=== PATIENT | female | born 1975 | race African-American/Black ===

== ENCOUNTER 2018-12-07 13:43 | Emergency (ER) | payer OTHER ==
[~2018-12-07] VITALS: Ht 167.6 cm; Wt 63.5 kg
[2018-12-07] MEDS ORDERED: BUTALB-APAP-CA1 EACH PO (15:41)
[2018-12-07] MEDS ORDERED: CYCLOBENZAPRINE5 MG PO (15:41)
[2018-12-07 16:44] VITALS: BP 124/72
== END 2018-12-07 16:44 | disposition home or self-care (01) ==
LOC: ER 13:43
DX: S29.012A Strain of muscle and tendon of back wall of thorax, initial encounter (principal); R51 Headache; V49.49XA Driver injured in collision with other motor vehicles in traffic accident, initial encounter; Y93.89 Activity, other specified; Y92.89 Other specified places as the place of occurrence of the external cause; Y99.8 Other external cause status

== ENCOUNTER → 2020-08-16 | Outpatient (CLI) | payer OTHER ==
[~2020-08-16] MED LIST: BUTALB-APAP-CA1 EACH PO; CYCLOBENZAPRINE5 MG PO
== END ==
LOC: LAB 12:18
PROVIDERS: ATTEND Nurse Practitioner
DX: Z20.828 Contact with and (suspected) exposure to other viral communicable diseases (principal)

== ENCOUNTER → 2020-09-11 | Outpatient (CLI) | payer OTHER | LOC: LAB 11:45 | PROVIDERS: ATTEND Nurse Practitioner | DX: U07.1 COVID-19 (principal) ==

== ENCOUNTER → 2021-02-22 | Outpatient (CLI) | payer OTHER ==
[2021-02-22 13:14] LABS: ABSOLUTE NEUTROPHILS 2.9 thou/uL (1.4-8.2); BASOPHILS 0.5 % (0.0-2.0); EOSINOPHILS 1.1 % (0.0-3.0); HEMATOCRIT 38.3 % (37.0-47.0); HEMOGLOBIN 12.7 gm/dL (12.0-15.0); LYMPHOCYTES 30.1 % (24.0-44.0); MCH 31.1 pg (26.0-34.0); MCHC 33.1 g/dL (28.0-37.0); MCV 93.9 fL (80.0-100.0); MONOCYTES 3.3 % (1.0-8.0); PLATELET COUNT 225 thou/uL (150-400); RBC 4.08 mil/uL (4.20-5.00); RDW 13.6 % (10.5-14.5); WBC 4.5 thou/uL (4.0-11.0)
[2021-02-22 13:16] LABS: URINE BILIRUBIN NEGATIVE (Negative); URINE BLOOD TRACE (Negative); URINE CLARITY CLEAR; URINE COLOR YELLOW; URINE GLUCOSE-RANDOM* NEGATIVE (Negative); URINE KETONES NEGATIVE (Negative); URINE LEUKOCYTES-REFLEX NEGATIVE (Negative); URINE NITRITE-REFLEX NEGATIVE (Negative); URINE PROTEIN (DIPSTICK) NEGATIVE (Negative); URINE SPECIFIC GRAVITY 1.025 (1.005-1.035); URINE UROBILINOGEN 0.2 E.U./dl (0.2-1.0)
[2021-02-22 13:27] LABS: ALBUMIN 3.7 g/dL (3.4-5.0); ANION GAP 6 mmol/L (7-16); BUN 10 mg/dL (7-18); CALCIUM 9.4 mg/dL (8.5-10.1); CHLORIDE 107 mmol/L (98-107); CO2 33 mmol/L (21-32); GLUCOSE 104 mg/dL (74-106); POTASSIUM 4.2 mmol/L (3.5-5.1); SGOT 17 U/L (15-37); SGPT 21 U/L (14-59); SODIUM 146 mmol/L (136-145); TOTAL BILIRUBIN 0.3 mg/dL (0.2-1.0); TOTAL PROTEIN 7.1 g/dL (6.4-8.2)
[2021-02-22 13:39] LABS: CHOLESTEROL 208 mg/dL (<200); HDL CHOLESTEROL 78 mg/dL (>40); LDL CHOLESTEROL 116 mg/dL (<100); TC:HDL 2.7 Ratio (Not establshd); TRIGLYCERIDE 71 mg/dL (<150); VLDL 14 mg/dL (<40)
[2021-02-22 22:06] LABS: TESTOSTERONE* 16 ng/dL (4-50)
== END ==
LOC: RAD 11:59
PROVIDERS: ATTEND Nurse Practitioner
DX: Z12.31 Encounter for screening mammogram for malignant neoplasm of breast (principal); N91.2 Amenorrhea, unspecified; Z00.00 Encounter for general adult medical examination without abnormal findings